=== PATIENT | female | born 1975 | race Caucasian/White ===

== ENCOUNTER 2017-03-21 20:39 | Emergency (ER) | payer MEDICAID ==
[2017-03-21 23:42] VITALS: BP 137/82
== END 2017-03-21 23:42 | disposition home or self-care (01) ==
LOC: ED 20:39
DX: G43.909 Migraine, unspecified, not intractable, without status migrainosus (principal); R07.89 Other chest pain; R11.2 Nausea with vomiting, unspecified
CPT/HCPCS: J0780; J1885

== ENCOUNTER 2019-04-15 14:34 | Emergency (ER) | payer MEDICAID ==
[~2019-04-15] VITALS: Ht 172.7 cm; Wt 73.5 kg
[2019-04-15 14:41] VITALS: Ht 172.7 cm; Wt 73.5 kg
[2019-04-15 16:46] VITALS: BP 117/79
== END 2019-04-15 16:46 | disposition home or self-care (01) ==
LOC: ED 14:34
DX: N64.4 Mastodynia (principal)

== ENCOUNTER 2019-05-10 10:59 | Emergency (ER) | payer MEDICAID ==
[~2019-05-10] VITALS: Ht 170.2 cm; Wt 73.5 kg
[2019-05-10 11:10] VITALS: Ht 170.2 cm; Wt 73.5 kg
[2019-05-10 12:18] LABS: BASOPHIL % 0.4 % (0-2); PLATELET COUNT 229 x10^3mcL (130-400); RED CELL DISTRIBUTION WIDTH 14.1 % (11.5-14.5)
[2019-05-10 12:53] LABS: CALCIUM 9.2 mg/dL (8.5-10.1); CARBON DIOXIDE 29.1 mmol/L (21-32); CHLORIDE SERUM 104 mmol/L (98-107); CREATININE SERUM 0.6 mg/dL (0.6-1.0); GFR1 > 60 mL/min; GLUCOSE SERUM 117 mg/dL (74-106); POTASSIUM SERUM 4.3 mmol/L (3.5-5.1); SODIUM SERUM 140 mmol/L (136-145)
[2019-05-10 12:57] LABS: ALBUMIN 3.9 g/dL (3.4-5.0); ALKALINE PHOSPHATASE 65 U/L (46-116); ALT/SGPT 26 U/L (14-59); AST/SGOT 12 U/L (15-37); BILIRUBIN TOTAL 0.92 mg/dL (0.20-1.00); TOTAL PROTEIN, SERUM 7.2 g/dL (6.4-8.2)
[2019-05-10 14:57] VITALS: BP 154/95
== END 2019-05-10 14:57 | disposition home or self-care (01) ==
LOC: ED 10:59
PROVIDERS: Emergency Medicine
DX: N30.00 Acute cystitis without hematuria (principal); Z98.890 Other specified postprocedural states
CPT/HCPCS: 36415

== ENCOUNTER 2019-11-17 21:28 | Inpatient (IN) | payer MEDICAID ==
[~2019-11-17] VITALS: Ht 175.3 cm; Wt 72.6 kg
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
--- NOTE | 2019-11-17 22:00 | NUR ---
NITRO PAST APPLIED TO CHEST WALL. SKEIN STRAIGHTENER DOING PCXR.
--- NOTE | 2019-11-17 22:15 | NUR ---
PATIENT AMBULATED TO THE BATHROOM. URINE COLLECTED AND SENT TO THE LAB.
[2019-11-17 22:24] LABS: BASOPHIL % 0.8 % (0-2); PLATELET COUNT 222 x10^3mcL (130-400); RED CELL DISTRIBUTION WIDTH 12.6 % (11.5-14.5)
[2019-11-17 22:38] LABS: UA SPECIFIC GRAVITY 1.015 (1.005-1.035); microscopic required? YES; urine erythrocyte TRACE (NEGATIVE)
[2019-11-17 22:42] LABS: ALKALINE PHOSPHATASE 64 U/L (46-116); ALT/SGPT 27 U/L (14-59); AST/SGOT 12 U/L (15-37); BILIRUBIN TOTAL 0.54 mg/dL (0.20-1.00); CARBON DIOXIDE 25.7 mmol/L (21-32); CHLORIDE SERUM 104 mmol/L (98-107); CHOLESTEROL 157 mg/dL (<200); CREATININE SERUM 0.6 mg/dL (0.6-1.0); GFR1 > 60 mL/min; GLUCOSE SERUM 108 mg/dL (74-106); HDL CHOLESTEROL 60 mg/dL (40-60); LIPASE 92 IU/L (73-393); POTASSIUM SERUM 3.8 mmol/L (3.5-5.1); SODIUM SERUM 140 mmol/L (136-145); T4(THYROXINE) 10.3 ug/dL (4.7-13.3); TOTAL PROTEIN, SERUM 7.4 g/dL (6.4-8.2)
[2019-11-17 22:46] LABS: CALCIUM 8.7 mg/dL (8.5-10.1)
[2019-11-17 22:47] LABS: AMPHETAMINE QUAL UR NONE DETECTED (See below)
--- NOTE | 2019-11-17 22:58 | NUR ---
PATIENT IS SLEEPING NO DISTRESS.
[2019-11-17] MEDS ORDERED: ZESTRIL20 MG PO (23:53)
--- NOTE | 2019-11-18 00:04 | NUR ---
REPORT WAS GIVEN TO DAVY. PATIENT WILL BE TRANSPORTED TO ROOM 206B
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
[2019-11-18 01:03] VITALS: BP 121/70
--- NOTE | 2019-11-18 01:39 | NUR ---
PHONED LAB IN REGARDS TO USING UA SAMPLE FOR UA CX, PER G[employer] AND SILVER ASSAYER OK TO ADD ORDER OF UA CX. WILL WAIT FOR RESULTS.
[2019-11-18 04:53] VITALS: BP 116/72
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
[2019-11-18 06:08] LABS: BASOPHIL % 0.7 % (0-2); PLATELET COUNT 204 x10^3mcL (130-400); RED CELL DISTRIBUTION WIDTH 12.5 % (11.5-14.5)
[2019-11-18 06:52] LABS: CALCIUM 8.7 mg/dL (8.5-10.1); CARBON DIOXIDE 27.7 mmol/L (21-32); CHLORIDE SERUM 104 mmol/L (98-107); CREATININE SERUM 0.6 mg/dL (0.6-1.0); GFR1 > 60 mL/min; GLUCOSE SERUM 98 mg/dL (74-106); MAGNESIUM 2.2 mg/dL (1.8-2.4); POTASSIUM SERUM 3.8 mmol/L (3.5-5.1); SODIUM SERUM 141 mmol/L (136-145)
--- NOTE | 2019-11-18 07:15 | NUR ---
RECEIVED PT. IN BED A/A/O X3. NO SOB, NO N/V NOTED. PT. DENIES ANY PAIN AT THIS TIME. IV SITE NOTED TO L AC. SCD TO BLE MAINTAINED. BED IN LOW POS., CALL LIGHT WITHIN REACH. SIDE RAILS UP X3.
--- NOTE | 2019-11-18 07:21 | NUR ---
ENDORSED ALL CARE TP DAYSHIFT NURSE, NO ACUTE DISTRESS NOTED. ALL QUESTIONS AND CONCERNS ADDRESSED, ALL COMFORT AND SAFETY MEASURES PROVIDED FOR, CALL LIGHT WITHIN REACH, BED IN LOWEST POSITION.
[2019-11-18 09:09] VITALS: BP 132/75
--- NOTE | 2019-11-18 10:29 | NUR ---
ECHOCARDIOGRAM COMPLETED.
[2019-11-18 13:41] VITALS: BP 132/75
--- NOTE | 2019-11-18 15:55 | NUR ---
PT PROVIDED WITH D/C HOME INSTRUCTIONS. INSTRUCTED TO MAKE SURE TO F/U WITH PCP WITH IN 3-5DAYS. PT VERBALIZED UNDERSTANDING OF INSTRUCTIONS. TELE AND IV D/C'C CATHETER INTACT. PT AMBULATED TO LOBBY WITH ALL PERSONAL BELONGINGS IN HAND FREE OF ANY APPARENT DISTRESS.
== END 2019-11-18 16:17 | disposition home or self-care (01) | DRG 203 ==
LOC: ED 21:28 → DU 23:08
PROVIDERS: Emergency Medicine; ADMIT Family Medicine
DX: R07.89 Other chest pain (principal); I10 Essential (primary) hypertension; N39.0 Urinary tract infection, site not specified
CPT/HCPCS: 83880; G0378; J0696; Q0092